=== PATIENT | male | born 1960 | race Two or more races ===

== ENCOUNTER 2016-11-01 01:13 | Emergency (ER) | payer OTHER ==
[~2016-11-01] VITALS: Ht 165.1 cm; Wt 70.3 kg
[2016-11-01] MEDS ORDERED: IV NS 0.9% 1,000 ML BAG IV ONE (02:00)
[2016-11-01] MEDS ORDERED: METOCLOPRAMIDE HCL 10 MG/2 ML VIAL IV ONE (02:00)
[2016-11-01] MEDS ORDERED: SUMATRIPTAN SUCCINATE 6 MG/0.5 ML VIAL SQ ONE (02:00)
--- NOTE | 2016-11-01 02:05 | NUR ---
PT A/OX4 BREATHING EFFORTLESSLY ON ROOM AIR, PT STATES HE WAS DRIVING HIS CAR WITH THE WINDOWS UP AND HIS LEFT EYE STARTED TO HURT 3 HOURS AGO, PT DENIES TRAUMA OR INJURY AND STATES HE IS HAVING A HEADACHE WELL X 3 HOURS, PT FAMILY AT BEDSIDE, MD MADE AWARE WILL CONTINUE TO MONITOR.
[2016-11-01] MEDS ORDERED: FLUORESCEIN SODIUM OPHTH 1 EA STRIP ONE (02:09)
[2016-11-01] MEDS ORDERED: TETRACAINE HCL/PF 0.5% UD 2 ML BOTTLE ONE (02:09)
[2016-11-01] MEDS ORDERED: FLUORESCEIN SODIUM OPHTH 1 EA STRIP OP ONE (02:30)
[2016-11-01] MEDS ORDERED: TETRACAINE HCL/PF 0.5% UD 2 ML BOTTLE OP ONE (02:30)
[2016-11-01 02:31] VITALS: BP 116/70
== END 2016-11-01 02:32 | disposition home or self-care (01) ==
LOC: ER 01:13
DX: S05.02XA Injury of conjunctiva and corneal abrasion without foreign body, left eye, initial encounter (principal); X58.XXXA Exposure to other specified factors, initial encounter; Y93.89 Activity, other specified; Y92.89 Other specified places as the place of occurrence of the external cause; Y99.9 Unspecified external cause status
CPT/HCPCS: 99283; A4606; Z7610